=== PATIENT | female | born 1965 | race Two or more races ===

== ENCOUNTER → 2016-07-24 | Day surgery (SDC) | payer OTHER ==
[~2016-07-24] VITALS: Ht 149.9 cm; Wt 66.2 kg
[2016-07-24] VITALS (21 sets, daily range): BP systolic 103–137; BP diastolic 62–84; PULSE 92–114; RESP 9–25; Ht 149.9 cm; Wt 66.2 kg
[~2016-07-24] MED LIST: CEFAZOLIN 1 GM INJ ONE; DIPHENHYDRAMINE 50 MG INJ IV PRN; HYDROmorphONE (0.2 MG/ML) 10ML SYG IV PRN; HYDROmorphONE 1 MG/ML SYG IV STA; HYDROmorphONE 2 MG/ML SYG ONE; KETOROLAC 30 MG INJ IV ONE; KETOROLAC 30 MG INJ ONE; MEPERIDINE 25 MG INJ IV PRN; METOCLOPRAMIDE 10 MG INJ IV PRN; METOCLOPRAMIDE 10 MG INJ ONE; MIDAZOLAM 1 MG/ML 2 ML INJ ONE; ONDANSETRON 4 MG INJ IV PRN; ONDANSETRON 4 MG INJ ONE; OXYCODONE/ACETAMINOPHEN (5/325) TAB PO PRN; POLYMYXIN/BACITRACIN 1L IRRIG ONE; PROPOFOL 20 ML ONE; ROCURONIUM 50 MG INJ ONE; ROPIVACAINE 0.5 % 30 ML VIAL ONE
[2016-07-24 16:28] LABS: INR 0.97; PARTIAL THROMBOPLASTIN TIME 27.8 Sec (25.0-35.0); PROTIME 12.9 Sec (12.2-14.2)
--- NOTE | 2016-07-24 16:48 | RADRPT ---
PROCEDURE: XR Chest. CLINICAL INDICATION: Preoperative for left ankle fracture. TECHNIQUE: Single frontal view. COMPARISON: None. FINDINGS: The lungs are clear. The heart size is normal. There is no pleural effusion. There is no pneumothorax. IMPRESSION: 1. Normal chest radiograph. RPTAT: QQ .Joaquín Vela MD, MD Date Time Electronically viewed and signed by .Joaquín Vela MD, on 07/24/2016 16:48 .R/
--- NOTE | 2016-07-24 18:07 | HPN ---
Date/Time of Note Date/Time of Note DATE: 07/24/16 TIME: 18:07 Interval H&P Admission Note Pt. seen H&P reviewed: No system changes GIOVANNY BENTLEY DPM Jul 24, 2016 18:07
--- NOTE | 2016-07-25 13:47 | RADRPT ---
PROCEDURE: Intraoperative imaging of the left ankle with fluoroscopy. CLINICAL INDICATION: Left ankle pain. Intraoperative. TECHNIQUE: 14 images of the left ankle were obtained in the operating room with an image intensifi er. No radiologist was in attendance. 37 seconds of fluoroscopy time was used. COMPARISON: No prior study is available for comparison. FINDINGS: Images demonstrate open reduction and internal fixation of the distal shaft of the fibula with a lat eral plate and multiple screws. 2 cannulated screws are noted transfixing the medial malleolus. IMPRESSION: 1. Intraoperative imaging of the left ankle. RPTAT: QQ .Joaquín Vela MD, MD Date Time Electronically viewed and signed by .Joaquín Vela MD, on 07/25/2016 13:47 .R/
--- NOTE | 2016-07-26 10:06 | OPR ---
DATE OF OPERATION: SURGEON: Ricki Valerio DPM APARTMENT RENTAL CLERK SURGEON: Zeinab Metcalf DPM ANESTHESIOLOGIST: ____ ANESTHESIA: General with popliteal block. PREOPERATIVE DIAGNOSIS: Left ankle fracture. POSTOPERATIVE DIAGNOSIS: Left ankle fracture. OPERATION PERFORMED: Open reduction internal fixation left ankle fracture. DESCRIPTION OF PROCEDURE: The patient was brought into the operating room, placed on the table in a secure supine position. Cardiac monitoring. General anesthesia was utilized for this case. The [facility] ankle and foot were prepped and draped in the usual sterile manner. The thigh tourniquet was ut ilized for this case. The thigh tourniquet was then inflated to 300 mmHg. Upon inflating the thigh tourniquet procedure #1 was then performed, open reduction internal fixation left ankle fracture. Attention was drawn to the lateral aspect of the left leg and ankle. A 7 cm incision was placed fro m the distal fibula going proximally to the midshaft of the fibula. The incision was deepened down to the periosteum. The periosteal elevator was utilized to deflected the periosteum from the fibula dorsally and plantarly. A Souza elevator was also utilized to denude the fibula. Next, the curette w as used to remove the hematoma within the spiral fibular fracture. All the hematoma was evacuated a nd irrigated with sterile saline solution and curettage. The fracture site was temporary closed wit h bone clamps using intraoperative fluoroscopy. Good reduction was noted. A VariAx 10-hole locking plate was placed over the fibula extending superior to the fracture site and to the distal fibula. A 3.5 mm screws were utilized, nonlocking screws into the fibula. Two screws were inserted from an terior to posterior for the distal fracture site at the fibula. The screw size was 3.5 x 12 mm and 3.5 x 14 mm. At this point, the fibula was noted to be reduced with appropriate length. No shorten ing of the fibula was noted as evident on intraoperative fluoroscopy. Next, the percutaneous K-wire s were inserted securing the medial malleolar fracture. Two 4.0 x 42 mm cannulated [place] screws we re utilized from inferior medial to superior lateral crossing the medial malleolar fracture site and securing the fracture site. Finally, a syndesmotic screw was inserted through the locking plate. The transsyndesmotic screw was 3.5 mm x 55 mm which was inserted through the locking plate and 4 cor tices were used. Good reduction of the syndesmotic ligament was achieved. The ankle range of motio n was satisfactory. The surgical site again was irrigated with sterile saline mixed with bacitracin solution. The deep fascia and tissue on the lateral leg were closed with 2-0 Vicryl simple interru pted stitches. Subcutaneous tissue was closed with 3-0 Vicryl simple interrupted stitches. The ski n edges were reapproximated with 4-0 nylon simple interrupted sutures. The medial incision was clos ed with 4-0 nylon simple interrupted stitches. Dressing consisted of Xeroform gauze, 4 x 4 gauze, 4 -inch Kerlix roll and 3 inch Coban into a semi-compressive dressing. The thigh tourniquet was defla femi and immediate hyperemia was noted to all digits of the left foot. A Jade compression dressing was applied with plaster splints with a medial to lateral stirrup and a posterior leaf splint surrou nded by Karl and ana laura garrisonap. The patient tolerated the procedure well, left the OR with vital sign s stable and satisfactory. No intraoperative complications were encountered. Patient tolerated the above procedure well. Patient will follow up 2 days postop. Dictated By: RICKI MCLEAN/RADHA Conf#: [id number] DID#: [id number] CC: ZEINAB METCALF DPM;*End*
== END | disposition home or self-care (01) ==
LOC: SDS 14:52
PROVIDERS: ATTEND Podiatrist Primary Podiatric Medicine
DX: S82.62XA Displaced fracture of lateral malleolus of left fibula, initial encounter for closed fracture (principal); X58.XXXA Exposure to other specified factors, initial encounter; Y92.89 Other specified places as the place of occurrence of the external cause
CPT/HCPCS: 27792; 71010; 73610; 84703; 85610; 85730; J0690; J1170; J1885; J2250; J2405; J2765; J2795; Z7512; Z7610